=== PATIENT | female | born 1995 | race Caucasian/White ===

== ENCOUNTER 2017-12-28 20:53 | Emergency (ER) | payer OTHER ==
[2017-12-28 20:59] VITALS: O2SAT 97
--- NOTE | 2017-12-28 21:46 | EDPHY ---
H & P Stated Complaint: +mono, abd pain, LUQ Time Seen by Provider: 12/28/17 21:45 HPI/ROS: CHIEF COMPLAINT: Left upper quadrant pain, recently diagnosed with mono HISTORY OF PRESENT ILLNESS: The patient presents to the ED with complaints of worsening intermittent left upper quadrant pain. The patient reportedly was diagnosed with mono on Tuesday. She has developed symptoms of fever and cervical adenopathy over the past 5 days. The patient has had some upper respiratory infections over the past 6 months. She was diagnosed with a mycoplasma pneumonia last semester and treated with antibiotics. She had been doing well prior to the diagnosis mononucleosis. The patient denies any history of fall or trauma. She reports left upper quadrant pain which is worsened with movement and palpation. REVIEW OF SYSTEMS: A comprehensive 10 point review of systems is otherwise negative aside from elements mentioned in the history of present illness. Source: Patient - Personal History LMP (Females 10-55): 15-21 Days Ago Current Tetanus Diphtheria and Acellular Pertussis (TDAP): Yes - Medical/Surgical History Hx Asthma: No Hx Chronic Respiratory Disease: No Hx Diabetes: No Hx Cardiac Disease: No Hx Renal Disease: No Hx Cirrhosis: No Hx Alcoholism: No Hx HIV/AIDS: No Hx Splenectomy or Spleen Trauma: No - Social History Smoking Status: Never smoked - Physical Exam Exam: General Appearance: Alert, no distress Eyes: Pupils equal and round no pallor or injection ENT, Mouth: Mucous membranes moist, bilateral anterior cervical chain adenopathy noted Respiratory: There are no retractions, lungs are clear to auscultation Cardiovascular: Regular rate and rhythm Gastrointestinal: Tenderness to palpation left upper quadrant, no peritoneal signs Neurological: A&O, normal motor function, normal sensory exam, normal cranial nerves Skin: Warm and dry, no rashes Musculoskeletal: Neck is supple nontender without meningeal symptoms Extremities: symmetrical, full range of motion Constitutional: Initial Vital Signs Temperature (C) 37.1 C 12/28/17 20:58 Heart Rate 110 H 12/28/17 20:58 Respiratory Rate 18 12/28/17 20:58 Blood Pressure 132/96 H 12/28/17 20:58 O2 Sat (%) 97 12/28/17 20:58 O2 Delivery Mode Room Air Allergies/Adverse Reactions: egg Allergy (Verified 12/28/17 20:58) guaifenesin Allergy (Verified 12/28/17 20:58) Milk Containing Products [dairy] Allergy (Verified 12/28/17 20:58) Home Medications: Medication Instructions Recorded Spironolactone 12/28/17 Medical Decision Making ED Course/Re-evaluation: The patient presents the ED for evaluation of abdominal pain in the setting of a recent mononucleosis diagnosis. The patient was noted to be slightly tachycardic upon arrival. She had an IV established. She received a L of normal saline. The patient's test is negative. Her hematocrit and serum chemistries are within normal limits. Given her complaints of abdominal pain a CT scan of the abdomen pelvis was ordered for splenic evaluation. CT scan of the abdomen pelvis demonstrates no significant splenomegaly, intra- abdominal adenopathy or intra-abdominal free fluid. I re-evaluated the patient at 11:00 p.m. and reviewed her laboratory testing and CT scan results. The patient will be discharged home with instructions to continue Tylenol and ibuprofen for management of her fever and symptoms. She is given customary return precautions. Differential Diagnosis: Differential diagnosis considered includes splenomegaly, spleen rupture, mesenteric adenitis, intra-abdominal hemorrhage, ectopic , critical anemia - Data Points Laboratory Results: Laboratory Results 12/28/17 22:00 12/28/17 22:00 12/28/17 12/28/17 12/28/17 22:06 22:00 22:00 WBC RBC Hgb POC Hgb 15.3 gm/dL gm/dL (12.6-16.3) Hct POC Hct 45 % % (38-47) MCV MCH MCHC RDW Plt Count MPV Neut % (Auto) Lymph % (Auto) [place] % (Auto) Eos % (Auto) Baso % (Auto) Nucleat RBC Rel Count Absolute Neuts (auto) Absolute Lymphs (auto) Absolute Monos (auto) Absolute Eos (auto) Absolute Basos (auto) Absolute Nucleated RBC Immature Gran % Seg Neutrophils % Band Neutrophils % Lymphocytes % Monocytes % Basophils % Immature Gran # Absolute Seg Neuts Absolute Band Neuts Absolute Lymphocytes Absolute Monocytes Absolute Basophils Atypical Lymphocytes Platelet Estimate Polychromasia Smear Review By POC Sodium 140 mEq/L mEq/L (135-145) Sodium 136 mEq/L mEq/L (135-145) POC Potassium 3.6 mEq/L mEq/L (3.3-5.0) Potassium 3.9 mEq/L mEq/L (3.5-5.2) POC Chloride 104 mEq/L mEq/L (97-110) Chloride 103 mEq/L mEq/L (97-110) Carbon Dioxide 22 mEq/l mEq/l (22-31) Anion Gap 11 mEq/L mEq/L (8-16) POC BUN < 3 mg/dL L mg/dL (7-23) BUN 4 mg/dL L mg/dL (7-23) Creatinine 0.6 mg/dL mg/dL (0.6-1.0) POC Creatinine 0.6 mg/dL mg/dL (0.6-1.0) Estimated GFR > 60 Glucose 95 mg/dL mg/dL (70-100) POC Glucose 104 mg/dL H mg/dL (70-100) Calcium 9.2 mg/dL mg/dL (8.5-10.4) Beta HCG, Qual NEGATIVE 12/28/17 22:00 WBC 10.24 10^3/uL H 10^3/uL (3.80-9.50) RBC 5.10 10^6/uL 10^6/uL (4.18-5.33) Hgb 14.5 g/dL g/dL (12.6-16.3) POC Hgb Hct 43.2 % % (38.0-47.0) POC Hct MCV 84.5 fL fL (81.5-99.8) MCH 28.4 pg pg (27.9-34.1) MCHC 33.6 g/dL g/dL (32.4-36.7) RDW 13.2 % % (11.5-15.2) Plt Count 207 10^3/uL 10^3/uL (150-400) MPV 11.4 fL fL (8.7-11.7) Neut % (Auto) 25.6 % L % (39.3-74.2) Lymph % (Auto) 68.9 % H % (15.0-45.0) [place] % (Auto) 3.1 % L % (4.5-13.0) Eos % (Auto) 0.3 % L % (0.6-7.6) Baso % (Auto) 1.5 % % (0.3-1.7) Nucleat RBC Rel Count 0.0 % % (0.0-0.2) Absolute Neuts (auto) 2.62 10^3/uL 10^3/uL (1.70-6.50) Absolute Lymphs (auto) 7.06 10^3/uL H 10^3/uL (1.00-3.00) Absolute Monos (auto) 0.32 10^3/uL 10^3/uL (0.30-0.80) Absolute Eos (auto) 0.03 10^3/uL 10^3/uL (0.03-0.40) Absolute Basos (auto) 0.15 10^3/uL H 10^3/uL (0.02-0.10) Absolute Nucleated RBC 0.00 10^3/uL 10^3/uL (0-0.01) Immature Gran % 0.6 % % (0.0-1.1) Seg Neutrophils % 5 % % Band Neutrophils % 17 % % Lymphocytes % 72 % % Monocytes % 4 % % Basophils % 2 % % Immature Gran # 0.06 10^3/uL 10^3/uL (0.00-0.10) Absolute Seg Neuts 0.51 10^/uL L 10^/uL (1.70-6.50) Absolute Band Neuts 1.74 10^3/uL H 10^3/uL (0.00-0.70) Absolute Lymphocytes 7.37 10^3/uL H 10^3/uL (1.00-3.00) Absolute Monocytes 0.41 10^3/uL 10^3/uL (0.30-0.80) Absolute Basophils 0.20 10^3/uL H 10^3/uL (0.02-0.10) Atypical Lymphocytes 2+ H Platelet Estimate ADEQUATE (ADEQ) Polychromasia 1+ H Smear Review By Pending POC Sodium Sodium POC Potassium Potassium POC Chloride Chloride Carbon Dioxide Anion Gap POC BUN BUN Creatinine POC Creatinine Estimated GFR Glucose POC Glucose Calcium Beta HCG, Qual Medications Given: Discontinued Medications Sodium Chloride (Ns) 1,000 mls @ 0 mls/hr IV EDNOW ONE; Wide Open PRN Reason: Protocol Stop: 12/28/17 22:52 Last Admin: 12/28/17 22:58 Dose: 1,000 mls Point of Care Test Results: 12/28/17 22:06 POC Sodium 140 POC Potassium 3.6 POC Chloride 104 POC BUN < 3 L POC Creatinine 0.6 POC Glucose 104 H Departure - Departure Disposition: Home, Routine, Self-Care Clinical Impression: Mononucleosis Abdominal pain Qualifiers: Abdominal location: left upper quadrant Qualified Code(s): R10.12 - Left upper quadrant pain Condition: Good Instructions: Acute Abdominal Pain (ED) Additional Instructions: 1. Take Ibuprofen or Motrin 600 mg by mouth three times a day. 2. Tylenol 650 mg every 6 hr as needed for pain 3. Return to the ED for markedly worsening symptoms, high fever or other concerns. 3. Your CT scan demonstrates no evidence of splenic enlargement, rupture or other significant intra-abdominal abnormality. Referrals: DR YESSY [Other] - As per Instructions Stand Alone Forms: School Excuse
[2017-12-28 22:12] LABS: PLATELET COUNT 207 10^3/uL (150-400)
[2017-12-28] MEDS ORDERED: IOPAMIDOL (ISOVUE-300) 100 ML BTL ONE (22:39)
[2017-12-28] MEDS ORDERED: NS 1,000 ML IV ONE (22:51)
[2017-12-28 23:09] VITALS: RESP 16; TEMP 98.1
[2017-12-28 23:41] VITALS: BP 123/73; PULSE 78
== END 2017-12-28 23:41 | disposition home or self-care (01) ==
DX: R10.12 Left upper quadrant pain (principal); B27.90 Infectious mononucleosis, unspecified without complication; E86.9 Volume depletion, unspecified
CPT/HCPCS: 82947-QW; Q9967